=== PATIENT | female | born 1965 | race Caucasian/White ===

== ENCOUNTER 2021-08-11 08:47 | Outpatient (CLI) | payer BC ==
[2021-08-11] MEDS ORDERED: EPINEPHrine 1 MG/ML AMP ONE (09:02)
[2021-08-11] MEDS ORDERED: Lidocaine 1% PF 5 ML VIAL ONE (09:03)
[2021-08-11] MEDS ORDERED: Sodium Bicarbonate 2.5 MEQ/5 ML VIAL ONE (09:03)
[2021-08-11 09:15] VITALS: BP 115/72; TEMP 97.8
== END 2021-08-11 09:55 | disposition home or self-care (01) ==
LOC: CSHRAD 08:47
PROVIDERS: ATTEND Orthopaedic Surgery
DX: M75.102 Unspecified rotator cuff tear or rupture of left shoulder, not specified as traumatic (principal); M75.82 Other shoulder lesions, left shoulder
CPT/HCPCS: 23350; J0171

== ENCOUNTER → 2023-03-31 | Day surgery (SDC) | payer BC ==
[~2023-03-31] MED LIST: EPINEPHrine 1 MG/ML AMP ONE; Iopamidol 300 61% 100 ML VIAL FS ONE; Lidocaine 1% PF 5 ML VIAL ONE; Sodium Chloride 0.9% 100 ML BAG ONE
== END ==
LOC: CSHRAD 09:30
PROVIDERS: ATTEND Orthopaedic Surgery
PROC: BP28YZZ Computerized Tomography (CT Scan) of Right Shoulder using Other Contrast (ICD-10-PCS; principal; 2023-03-31)
DX: M24.811 Other specific joint derangements of right shoulder, not elsewhere classified (principal)
CPT/HCPCS: 23350; J0171; J3490; Q9967